=== PATIENT | female | born 2000 | race Two or more races ===

== ENCOUNTER → 2023-08-12 | Emergency (ER) | payer OTHER ==
[~2023-08-12] VITALS: Ht 160 cm; Wt 59.0 kg
[2023-08-12 18:59] LABS: HEMATOCRIT 37.4 % (36.0-45.00); MEAN CELL VOLUME 79.6 fL (80.00-100.00); MEAN CORPUSCULAR HEMOGLOBIN 27.7 pg (27.00-32.0); MEAN CORPUSCULAR HGB CONC 34.8 g/dl (32.0-36.0); PLATELET COUNT 147 K/uL (150-450); RED CELL DISTRIBUTION WIDTH 13.3 % (11.5-14.5)
== END | disposition left against medical advice (07) ==
LOC: ER 17:39
PROVIDERS: General Practice
DX: R21 Rash and other nonspecific skin eruption (principal)